=== PATIENT | female | born 1995 | race Caucasian/White ===

== ENCOUNTER 2017-07-28 08:20 | Day surgery (SDC) | payer MEDICAID ==
[2017-07-27 09:21] VITALS: BMI 30.2
[~2017-07-28 08:20] MED LIST: LACTATED RINGERS 1,000 ML IV SCH
[2017-07-28] MEDS ORDERED: LIDOCAINE 1% 20 ML VIAL (10MG/ML) FOR IV START INTRADERMA ONE (08:30)
[2017-07-28 08:40] VITALS: RESP 16; TEMP 98.4
[2017-07-28] MEDS ORDERED: PROPOFOL 10 MG/ML 20 ML VIAL IV ONE (09:26)
--- NOTE | 2017-07-28 09:38 | P.PCN ---
Date of Procedure: 07/28/17 Procedure(s) Performed: BRIEF HISTORY: Patient is a 22-year-old, pleasant, white female, scheduled for an upper endoscopy as a part of evaluation of long-standing history of GERD and intermittent dysphagia to solids. PROCEDURE PERFORMED: Esophagogastroduodenoscopy with biopsy. PREOPERATIVE DIAGNOSIS: Long-standing history of GERD and intermittent dysphagia to solids. IV sedation per anesthesia. PROCEDURE: After informed consent was obtained, the patient was brought into the endoscopy unit. IV sedation was administered by Anesthesia under continuous monitoring. Initially the Olympus GIF-140 video endoscope was inserted into the mouth. Esophagus intubated without any difficulty. It was gradually advanced into the stomach and duodenum and carefully examined. The bulb and the second part of the duodenum appeared normal. The scope at this time was withdrawn to the stomach, adequately insufflated with air, and upon careful examination, mucosa of the antrum had mild patchy areas of erythema and biopsies were done from this area. Theody, cardia and the fundus appeared normal. The scope was then withdrawn into the esophagus. The GE junction was located at 39 cm from the incisors. There were 2 superficial erosions noted at the GE junction and there were thickened distal esophageal mucosal folds with longitudinal ridges and furrows suspicious for eosinophilic esophagitis and hence multiple biopsies were obtained from this area. The proximal right esophagus appeared normal and the patient tolerated the procedure well. IMPRESSION: 1. And mild antral gastritis. 2. Superficial erosions with longitudinal ridges and furrows with thickened esophageal folds consistent with eosinophilic esophagitis. RECOMMENDATIONS: The findings of this examination were discussed with the patient as well as her family. She was advised to follow with the biopsy results. I suggested that she start [id number] Prilosec 20 mg daily and follow antireflux measures
[2017-07-28 10:12] VITALS: PULSE 97
[2017-07-28 10:14] VITALS: BP 111/65
== END 2017-07-28 10:35 | disposition home or self-care (01) ==
LOC: ORWHC2ENDO 08:20
PROVIDERS: ATTEND Internal Medicine Gastroenterology
DX: K29.50 Unspecified chronic gastritis without bleeding (principal); K22.10 Ulcer of esophagus without bleeding; K20.0 Eosinophilic esophagitis; L57.0 Actinic keratosis; Z79.3 Long term (current) use of hormonal contraceptives; Z79.899 Other long term (current) drug therapy; Z91.09 Other allergy status, other than to drugs and biological substances
CPT/HCPCS: 81025; 88305; 88342; 43239; J2704